=== PATIENT | female | born 1995 | race Caucasian/White ===

== ENCOUNTER 2019-02-25 20:38 | Outpatient (CLI) | payer MEDICAID ==
[~2019-02-25] VITALS: Ht 167.6 cm; Wt 90.9 kg
== END 2019-02-25 22:20 | disposition home or self-care (01) ==
LOC: LDOP 20:38
PROVIDERS: ATTEND Obstetrics & Gynecology
DX: O26.893 Other specified pregnancy related conditions, third trimester (principal); R10.9 Unspecified abdominal pain; Z3A.39 39 weeks gestation of pregnancy; Z88.2 Allergy status to sulfonamides
CPT/HCPCS: 59025; 99211; 99284; G0463

== ENCOUNTER 2019-02-26 04:12 | Inpatient (IN) | payer MEDICAID ==
[~2019-02-26] VITALS: Ht 165.1 cm; Wt 90.9 kg
[2019-02-26 04:13] VITALS: BP 132/88
[2019-02-26] MEDS ORDERED: D5%-LACTATED RINGERS 1,000 ML IV SCH (04:37)
[2019-02-26] MEDS ORDERED: OXYTOCIN 30U/ 0.9% NaCL 500ML 500 ML IV PRN (04:37)
[2019-02-26] MEDS ORDERED: OXYTOCIN 30U/ 0.9% NaCL 500ML 500 ML IV ONE (04:37)
[2019-02-26] MEDS ORDERED: LACTATED RINGERS 1,000 ML IV SCH ×2 (04:37→08:22)
[2019-02-26] MEDS ORDERED: FENTANYL PF 100 MCG/2ML ONE ×2 (04:49→07:15)
[2019-02-26] MEDS ORDERED: NEWBORN KIT ONE ×2 (04:49→09:49)
[2019-02-26] MEDS ORDERED: LIDOCAINE 1%, 20ML ONE (04:49)
[2019-02-26] MEDS ORDERED: MISOPROSTOL 200 MCG TABLET ONE (04:50)
[2019-02-26] MEDS ORDERED: OXYTOCIN 30U/ 0.9% NaCL 500ML 500 ML ONE (04:50)
[2019-02-26] MEDS ORDERED: CALCIUM CARBONATE 500 MG TAB.CHEW PO PRN (05:00)
[2019-02-26] MEDS ORDERED: ONDANSETRON 2MG/ML, 2ML IVPush PRN (05:00)
[2019-02-26] MEDS ORDERED: FENTANYL PF 100 MCG/2ML IV PRN (05:00)
[2019-02-26] MEDS ORDERED: PLEASE ENTER HEIGHT AND WEIGHT MC SCH (05:00)
[2019-02-26] MEDS ORDERED: TERBUTALINE 1 MG/ML, 1ML IVPush PRN (05:00)
[2019-02-26] MEDS ORDERED: TERBUTALINE 1 MG/ML, 1ML SQ PRN (05:00)
[2019-02-26] MEDS: FENTANYL PF 100 MCG/2ML IVPush PRN ×2 (05:10→07:16)
[2019-02-26 05:20] LABS: MEAN CORPUSCULAR HEMOGLOBIN 30.7 pg (27.0-34.8); MEAN CORPUSCULAR HGB CONC 33.5 g/dL (32.4-35.8); MEAN CORPUSCULAR VOLUME 91.8 fL (80-100); PLATELET COUNT 225 x10^3/uL (130-400); RED BLOOD COUNT 4.38 x10^6/uL (3.82-5.3); RED CELL DISTRIBUTION WIDTH 14.4 % (9.6-15.2)
[2019-02-26 05:54] LABS: AMPHETAMINE SCREEN, URINE Negative (Negative); BARBITURATE SCREEN, URINE Negative (Negative); BENZODIAZEPINE SCREEN, URINE Negative (Negative); CANNABINOID SCREEN, URINE Negative (Negative); COCAINE SCREEN, URINE Negative (Negative); METHADONE SCREEN, URINE Negative (Negative); OPIATE SCREEN, URINE Negative (Negative)
[2019-02-26 06:04] LABS: BASOPHILS # (AUTO) 0.02 x10^3/uL (0-0.1); BASOPHILS % (AUTO) 0 % (0-1); EOSINOPHILS # (AUTO) 0.04 x10^3/uL (0-0.4); EOSINOPHILS % (AUTO) 0 % (1-7); LYMPHOCYTES # (AUTO) 1.57 x10^3/uL (1-3.4); LYMPHOCYTES % (AUTO) 7 % (22-44); MD SCAN; MONOCYTES # (AUTO) 0.72 x10^3/uL (0.2-0.8); MONOCYTES % (AUTO) 3 % (2-9); NEUTROPHILS % (AUTO) 90 % (42-75)
[2019-02-26] MEDS ORDERED: FENTANYL/BUPIV./NS/PF 250 ML EPIDCONT SCH ×2 (07:27→08:22)
[2019-02-26] MEDS ORDERED: FENTANYL/BUPIV./NS/PF 250 ML EPIDCONT ONE ×2 (07:38→08:45)
[2019-02-26] MEDS ORDERED: ONDANSETRON 2MG/ML, 2ML ONE (08:09)
[2019-02-26] MEDS ORDERED: BUPIVACAINE 0.25% ONE ×2 (08:25→08:45)
[2019-02-26] MEDS ORDERED: NALOXONE 0.4 MG/ML, 1ML IVPush PRN (08:30)
[2019-02-26] MEDS ORDERED: EPHEDRINE 50 MG/ML, 1ML IVPush PRN (08:30)
[2019-02-26] MEDS ORDERED: LACTATED RINGERS 1,000 ML IVBOLUS PRN (08:30)
[2019-02-26] MEDS ORDERED: LACTATED RINGERS 1,000 ML INTUTE PRN (10:00)
[2019-02-26] MEDS ORDERED: GENTAMICIN PER PHARMACY MC PRN (15:30)
[2019-02-26] MEDS ORDERED: AMPICILLIN 2 GM in SODIUM CHLORIDE 0.9% 100 ML IV SCH (15:30)
[2019-02-26] MEDS ORDERED: PHARMACOKINETIC MONITORING MC PRN ×2 (16:00)
[2019-02-26] MEDS ORDERED: GENTAMICIN 350 MG in SODIUM CHLORIDE 0.9% 100 ML IV SCH (16:00)
[2019-02-26] MEDS ORDERED: PHARMACOKINETIC CONSULTATION MC ONE (16:00)
[2019-02-26] MEDS ORDERED: ACETAMINOPHEN 500 MG TABLET ONE (16:41)
[2019-02-26 16:44] LABS: CREATININE 0.93 mg/dL (0.55-1.02)
[2019-02-26] MEDS ORDERED: ACETAMINOPHEN 500 MG TABLET PO ONE (17:00)
[2019-02-26] MEDS: OXYTOCIN 30U/ 0.9% NaCL 500ML 500 ML IV SCH (18:16)
[2019-02-26] MEDS ORDERED: MAGNESIUM HYDROXIDE 8%, 30ML UDC PO PRN (18:30)
[2019-02-26] MEDS ORDERED: METHYLERGONOVINE 0.2 MG/ML IM PRN (18:30)
[2019-02-26] MEDS ORDERED: DIPH,PERTUSS(ACELL),TET VAC/PF NC IM-VACC PRN (18:30)
[2019-02-26] MEDS ORDERED: MISOPROSTOL 200 MCG TABLET PR PRN (18:30)
[2019-02-26] MEDS ORDERED: SIMETHICONE 80 MG CHEW TAB PO PRN (18:30)
[2019-02-26] MEDS ORDERED: BISACODYL 10 MG SUPP PR PRN (18:30)
[2019-02-26] MEDS ORDERED: METOCLOPRAMIDE 5 MG/ML, 2ML IV PRN (18:30)
[2019-02-26] MEDS ORDERED: ONDANSETRON 2MG/ML, 2ML IV PRN (18:30)
[2019-02-26] MEDS ORDERED: RHOGAM FROM BLOOD BANK 1 NOTE EA IM/IV ONE (18:30)
[2019-02-26] MEDS ORDERED: ACETAMINOPHEN 325 MG TABLET PO PRN ×3 (18:30)
[2019-02-26] MEDS ORDERED: GLYCERIN ADULT SUPP PR PRN (18:30)
[2019-02-26] MEDS ORDERED: CARBOPROST TROMETHAMINE 250 MCG/ML, 1ML IM PRN (18:30)
[2019-02-26] MEDS ORDERED: MEASLES,MUMPS&RUBELLA VACC/PF 0.5 ML SQ-VACC PRN (18:30)
[2019-02-26 19:50] VITALS: BP 89/57
[2019-02-26] MEDS: DOCUSATE 100 MG CAPSULE PO PRN (20:32)
[2019-02-26] MEDS: OXYcodone/APAP 5/325MG TABLET PO PRN (20:34)
[2019-02-26 20:40] VITALS: BP 95/59
[2019-02-27 01:00] VITALS: BP 93/62
[2019-02-27] MEDS: OXYcodone/APAP 5/325MG TABLET PO PRN ×6 (01:30→23:52)
[2019-02-27 01:55] LABS: MEAN CORPUSCULAR HEMOGLOBIN 30.8 pg (27.0-34.8); MEAN CORPUSCULAR HGB CONC 33.3 g/dL (32.4-35.8); MEAN CORPUSCULAR VOLUME 92.6 fL (80-100); PLATELET COUNT 178 x10^3/uL (130-400); RED BLOOD COUNT 3.24 x10^6/uL (3.82-5.3); RED CELL DISTRIBUTION WIDTH 14.2 % (9.6-15.2)
[2019-02-27 02:16] LABS: BASOPHILS # (AUTO) 0.02 x10^3/uL (0-0.1); BASOPHILS % (AUTO) 0 % (0-1); EOSINOPHILS # (AUTO) 0.16 x10^3/uL (0-0.4); EOSINOPHILS % (AUTO) 1 % (1-7); LYMPHOCYTES # (AUTO) 1.51 x10^3/uL (1-3.4); LYMPHOCYTES % (AUTO) 6 % (22-44); MD SCAN; MONOCYTES # (AUTO) 1.08 x10^3/uL (0.2-0.8); MONOCYTES % (AUTO) 5 % (2-9); NEUTROPHILS # (AUTO) 21.03 x10^3/uL (1.8-6.8); NEUTROPHILS % (AUTO) 88 % (42-75)
[2019-02-27 04:00] VITALS: BP 98/64
[2019-02-27] MEDS: OXYTOCIN 30U/ 0.9% NaCL 500ML 500 ML IV SCH ×2 (04:16→14:16)
[2019-02-27 08:20] VITALS: BP 101/68
[2019-02-27] MEDS: PRENATAL VIT/IRON/FA 1 EACH TABLET PO SCH (08:20)
[2019-02-27] MEDS: DOCUSATE 100 MG CAPSULE PO PRN ×2 (08:20→19:51)
[2019-02-27 12:09] VITALS: BP 99/64
[2019-02-27 16:00] VITALS: BP 100/64
[2019-02-27 20:00] VITALS: BP 105/72
[2019-02-28] VITALS: BP 103/69
[2019-02-28] MEDS: OXYTOCIN 30U/ 0.9% NaCL 500ML 500 ML IV SCH ×2 (00:16→10:16)
[2019-02-28] MEDS: OXYcodone/APAP 5/325MG TABLET PO PRN ×4 (04:29→17:25)
[2019-02-28 05:41] LABS: BASOPHILS # (AUTO) 0.03 x10^3/uL (0-0.1); BASOPHILS % (AUTO) 0 % (0-1); EOSINOPHILS # (AUTO) 0.26 x10^3/uL (0-0.4); EOSINOPHILS % (AUTO) 2 % (1-7); LYMPHOCYTES # (AUTO) 2.52 x10^3/uL (1-3.4); LYMPHOCYTES % (AUTO) 17 % (22-44); MD NO; MEAN CORPUSCULAR HEMOGLOBIN 31.4 pg (27.0-34.8); MEAN CORPUSCULAR HGB CONC 33.7 g/dL (32.4-35.8); MEAN CORPUSCULAR VOLUME 93.2 fL (80-100); MEAN PLATELET VOLUME 9.2 fL (7.4-10.4); MONOCYTES # (AUTO) 0.74 x10^3/uL (0.2-0.8); MONOCYTES % (AUTO) 5 % (2-9); NEUTROPHILS # (AUTO) 11.42 x10^3/uL (1.8-6.8); NEUTROPHILS % (AUTO) 76 % (42-75); PLATELET COUNT 166 x10^3/uL (130-400); RED BLOOD COUNT 2.92 x10^6/uL (3.82-5.3); RED CELL DISTRIBUTION WIDTH 14.3 % (9.6-15.2)
[2019-02-28 07:10] VITALS: BP 107/71
[2019-02-28] MEDS: DOCUSATE 100 MG CAPSULE PO PRN (08:53)
[2019-02-28] MEDS: PRENATAL VIT/IRON/FA 1 EACH TABLET PO SCH (08:53)
[2019-02-28] MEDS ORDERED: OXYC-302 PO (13:01)
== END 2019-02-28 19:03 | disposition home or self-care (01) | DRG 805 ==
LOC: LDIP 04:12 → 2NW 19:30
PROVIDERS: ADMIT Obstetrics & Gynecology; ATTEND Obstetrics & Gynecology
PROC: 10D07Z6 Extraction of Products of Conception, Vacuum, Via Natural or Artificial Opening (ICD-10-PCS; principal; 2019-02-26)
PROC: 10H073Z Insertion of Monitoring Electrode into Products of Conception, Via Natural or Artificial Opening (ICD-10-PCS; 2019-02-26)
PROC: 10907ZC Drainage of Amniotic Fluid, Therapeutic from Products of Conception, Via Natural or Artificial Opening (ICD-10-PCS; 2019-02-26)
PROC: 10H07YZ Insertion of Other Device into Products of Conception, Via Natural or Artificial Opening (ICD-10-PCS; 2019-02-26)
PROC: 0UQMXZZ Repair Vulva, External Approach (ICD-10-PCS; 2019-02-26)
PROC: 3E0R3BZ Introduction of Anesthetic Agent into Spinal Canal, Percutaneous Approach (ICD-10-PCS; 2019-02-26)
PROC: 00HU33Z Insertion of Infusion Device into Spinal Canal, Percutaneous Approach (ICD-10-PCS; 2019-02-26)
DX: O77.0 Labor and delivery complicated by meconium in amniotic fluid (principal); O41.1230 Chorioamnionitis, third trimester, not applicable or unspecified; Z37.0 Single live birth; D62 Acute posthemorrhagic anemia; O99.354 Diseases of the nervous system complicating childbirth; O99.52 Diseases of the respiratory system complicating childbirth; J45.909 Unspecified asthma, uncomplicated; O76 Abnormality in fetal heart rate and rhythm complicating labor and delivery; O90.81 Anemia of the puerperium; G43.909 Migraine, unspecified, not intractable, without status migrainosus; O75.81 Maternal exhaustion complicating labor and delivery; O70.0 First degree perineal laceration during delivery; Z3A.40 40 weeks gestation of pregnancy
CPT/HCPCS: 36415; 80307; 82565; 82803; 85025; 86850; 86900; 88305; G0378; J0290; J2405; J3010; J3490; J1580; J2590; J7120